=== PATIENT | female | born 1985 | race Hispanic/Latino ===

== ENCOUNTER 2017-12-19 21:22 | Emergency (ER) | payer MEDICAID, SELFPAY ==
[2017-12-20 00:45] LABS: Bilirubin Negative (Negative); Blood, Urine Negative (Negative); Clarity CLEAR (Clear); Glucose, Urine (Dipstick) Negative (Negative); Leukocyte Negative (Negative); Nitrite Negative (Negative); Protein, Urine (Dipstick) Negative (Neg-Trace); Specific Gravity, Urine 1.005 (1.002-1.036)
== END 2017-12-20 01:33 | disposition home or self-care (01) ==
LOC: ERS 21:22
DX: O9A.212 Injury, poisoning and certain other consequences of external causes complicating pregnancy, second trimester (principal); S30.1XXA Contusion of abdominal wall, initial encounter; Z3A.18 18 weeks gestation of pregnancy; W22.8XXA Striking against or struck by other objects, initial encounter
CPT/HCPCS: 81003; 87086; 99283

== ENCOUNTER 2018-03-21 23:14 | Day surgery (SDC) | payer OTHER ==
[2018-03-22 00:12] VITALS: BP 116/63; TEMP 98.3
--- NOTE | 2018-03-22 01:04 | PDOC.FPROB ---
FMR OB H&P: HPI - History of Present Illness Chief Complaint: Abdominal Pain History of Present Illness: Ms Cordon is a 32yo female @31.1wks by LMP c/w 16.2wk US presenting for sharp abdominal pain that started at 2300 after she felt baby move. Pain was severe initially but has decreased to 2/10. Denies contractions, vaginal bleeding, LOF. Primary Care Physician: Arash Washington MD FMR OB H&P: Current - Care : 2 Para: 1001 Gestational age: 31.1wks Due date: 05/23/2018 Dating Criteria: LMP c/w 16.2 US Total weight gain: 10lb Course/Complications: GDM controlled with Metformin and Diet - OB Labs Blood type: B RH: positive Antibody Screen: negative HIV: negative RPR: negative HepBsAg: negative Rubella: immune Quad screen: unknown (declined) Gonorrhea: unknown Chlamydia: unknown 1 hour gtt: 233 A1c: 5.8% GBS: unknown H&H: 11.5/32.5 Platelets: 160 - First Trimester Ultrasound First trimester: normal - Anatomy Survey Anatomy survey: no abnormalities visualized FMR OB H&P: History - Past Medical History PMH: None - OB History OB History: daughter age 9 born by - Social History Social History: Denies alcohol, tobacco or drug use - Family History Family History: FH + for DM FMR OB H&P: Medications - Current Home Medications: Medication Instructions Recorded Confirmed Type Vit,Calc78/Iron/Folic 1 tab PO QAM 03/22/18 03/22/18 History [Prenatabs FA Tablet] metFORMIN [Glucophage] 500 mg PO Q24HR 03/22/18 03/22/18 History Allergies/Adverse Reactions: Allergies Allergy/AdvReac Type Severity Reaction Status Date / Time No Known Allergies Allergy Unverified 03/22/18 00:13 FMR OB H&P: ROS - Review of Systems General: denies: fever/chills Eyes: denies: vision changes, double vision ENT: denies: nasal congestion, rhinorrhea Cardiovascular: denies: chest pain, edema Respiratory: denies: cough, congestion, shortness of breath Gastrointestinal: reports: abdominal pain. denies: nausea, vomiting Genitourinary (Female): denies: dysuria, vaginal discharge, vaginal pain, vaginal bleeding, contractions Musculoskeletal: denies: pain Neurologic: denies: seizures, headache Integumentary: denies: rash, lesions Breast: denies: skin changes Endocrine: reports: polyuria FMR OB H&P: Vital Signs - Maternal Vital signs: Vital Signs - First Documented Temp Pulse Resp BP Pulse Ox 98.3 F 81 20 116/63 98 03/21/18 23:58 03/21/18 23:58 03/21/18 23:58 03/21/18 23:58 03/21/18 23:58 - Heart Tones Baseline: 130 Variability: moderate Acceleration: present Deceleration: absent Category: category 1 New Era contractions every: none FMR OB H&P: Physical Exam - Physical Exam General: NAD, awake, alert and oriented HEENT: normocephalic and atraumatic Neck: supple, trachea midline Heart: RRR, no murmurs/rubs/gallops General: CTAB, no respiratory distress, no wheezing Abdomen: soft, gravid, non-tender Skin: capillary refill <2 seconds Psychiatric: intact recent and remote memory, good judgement and insight, normal mood and affect FMR OB H&P: A/P - Problem List (1) Status: Acute Qualifiers: Weeks of gestation: 31 weeks Qualified Code(s): Z3A.31 - 31 weeks gestation of Disposition: Ms Cordon is a 32yo female @31.1wks by LMP c/w 16.2wk US presenting with abdominal pain - US preformed with single fetus in transverse lie, anterior placenta not low lying. - TRIXIE 20cm - BPP 8/8 - FHTs reassuring - Pain has resolved Dispo: Pt to discharge home Discussion: Date/Time: 03/22/18100 This H&P was discussed with Dr. Roach who agrees with the above documentation and plan. Attending Addendum - Attending Addendum Date/Time: 03/22/182301 I personally evaluated the patient and discussed the management with Dr. Lozano and Dr. Jerez I agree with the History, Examination, Assessment and Plan documented above with any addition or exceptions noted below. 32 yo female at 31.1 wks here for evaluation of abdominal pain. Pain present for less than 1 hour. No contractions, LOF, VB, trauma, or discharge. +FM. FHT reactive. BPP 8/8. Nontender on exam. MSK pain related to gestational age and movement. Now resolved. Reassuring monitoring throughout her stay. Has scheduled followup with PCP next week. Precautions discussed. Patient reassured. Ok for d/c to home. Clara
== END 2018-03-22 01:48 | disposition home or self-care (01) ==
LOC: L&D/OP 23:14
PROVIDERS: ATTEND Student in an Organized Health Care Education/Training Program
DX: O99.89 Other specified diseases and conditions complicating pregnancy, childbirth and the puerperium (principal); R10.9 Unspecified abdominal pain; O24.415 Gestational diabetes mellitus in pregnancy, controlled by oral hypoglycemic drugs; Z3A.31 31 weeks gestation of pregnancy
CPT/HCPCS: 76815; 90471; 90686; 99282; G0008

== ENCOUNTER 2018-05-02 18:14 | Inpatient (IN) | payer OTHER ==
--- NOTE | 2018-05-02 19:38 | PDOC.FPROB ---
FMR OB H&P: HPI - History of Present Illness Chief Complaint: Sent over from clinic for BPP 4/8 with non-reactive NST Indentification: 32 year old at 37.0 wks History of Present Illness: 32 yo at 37.0w by LMP/16.2w sono her for evaluation after being found to have abnormal BPP/NST at clinic today. BPP 4/10 with non-reactive NST. No points were given for breathing and flexion/extension. Patient does have history of uncontrolled GDM on metformin 1000 mg BID. Her sugars over the last week are not at goal, but they have improved. Patient endorses movement. She denies N/V, vaginal bleeding, vaginal discharge, LoF. Patient has intermittent contractions. Primary Care Physician: MERCED Carrington/Padmini FMR OB H&P: Current - Care : 2 Para: 1001 Gestational age: 37.0 wks Due date: 05/23/2018 Dating Criteria: LMP/16.2 wk sono - OB Labs Blood type: B RH: positive Antibody Screen: negative HIV: negative RPR: negative HepBsAg: negative Rubella: immune 1 hour gtt: 233 A1c: 5.8% GBS: positive - Additional Ultrasound Additional: Ultrasound on 04/11/2018 showed EFW 2824g. Hadlock 92.2%. Polyhdramnios noted at that time with TRIXIE 26.99. FMR OB H&P: History - Past Medical History PMH: None - OB History OB History: AD GDM, uncontrolled Polyhydramnios on repeated sono's LGA infant Prior LGA infant requiring vacuum assisted delivery and episiotomy for delivery - SOCIAL MEDIA DEVELOPER History SOCIAL MEDIA DEVELOPER History: None FMR OB H&P: Medications - Current Home Medications: Medication Instructions Recorded Confirmed Type Vit,Calc78/Iron/Folic 1 tab PO QAM 03/22/18 05/02/18 History [Prenatabs FA Tablet] metFORMIN [Glucophage] 500 mg PO Q24HR 03/22/18 05/02/18 History Allergies/Adverse Reactions: Allergies Allergy/AdvReac Type Severity Reaction Status Date / Time No Known Allergies Allergy Verified 05/02/18 19:52 FMR OB H&P: ROS - Review of Systems General: denies: fever/chills Eyes: denies: vision changes, double vision ENT: denies: nasal congestion, rhinorrhea, sore throat Cardiovascular: denies: chest pain, palpitation Respiratory: denies: cough, congestion, shortness of breath Gastrointestinal: denies: abdominal pain, bloating, cramping, nausea, vomiting Genitourinary (Female): denies: incontinence, dysuria Musculoskeletal: denies: pain Neurologic: denies: numbness, syncope, seizures Integumentary: denies: rash, lesions Hematologic/Lymphatic: denies: prolonged or excessive bleeding Psychological: reports: anxiety (anxiety about current situation). denies: depression FMR OB H&P: Vital Signs - Heart Tones Variability: moderate Acceleration: present Deceleration: absent Category: category 1 FMR OB H&P: Physical Exam - Physical Exam General: NAD, awake, alert and oriented HEENT: MMM Neck: supple Heart: RRR General: no respiratory distress Abdomen: soft, gravid, non-tender Musculoskeletal: normal gait and station, pulses present, FROM in all four extremities Neurological: no tremor, no focal deficit Skin: no rash, capillary refill <2 seconds Lymphatic: no unusual bruising or bleeding Psychiatric: intact recent and remote memory, good judgement and insight, normal mood and affect - Pelvic Exam Vulva: normal hair distribution, no masses, no discharge, no blood SVE: Difficult exam; FT/thick/high; could not determine presentation Presentation: Vertex on bedside sono; could not confirm with cervical exam Estimated Weight: 8 lbs FMR OB H&P: A/P - Problem List (1) Term Current Visit: Yes Status: Acute Code(s): Z34.80 - ENCOUNTER FOR SUPRVSN OF NORMAL , UNSP TRIMESTER (2) GDM, class A2 Current Visit: Yes Status: Acute Code(s): O24.419 - GESTATIONAL DIABETES MELLITUS IN , UNSP CONTROL (3) LGA (large for gestational age) fetus Current Visit: Yes Status: Acute Code(s): PTG1959 - (4) Polyhydramnios affecting Current Visit: Yes Status: Acute Code(s): O40.9XX0 - POLYHYDRAMNIOS, UNSP TRIMESTER, NOT APPLICABLE OR UNSP (5) GBS (group B Streptococcus carrier), +RV culture, currently Current Visit: Yes Status: Acute Code(s): O99.820 - STREPTOCOCCUS B CARRIER STATE COMPLICATING Disposition: 32 year old at 37 wk by LMP/16.2 sk sono presents after being sent over from clinic due to BPP/NST of 09/13. Non-reassuring BPP/NST - BPP/NST 09/13; points not given for breathing and flexion/extension - Bedside sono and formal BPP 01/11 - NST now reactive - BG 95 - Presentation on sono over last few weeks has been transverse; however, sono on bedside showed vertex presentation; repeat sono for formal BPP showed transverse presentation with head to left (unstable lie) - BPP reassuring. Will plan to monitor for an additional 2-3 hours and send home. - Cervical exam: FT/thick/high. Could not confirm presentation on cervical exam. - Anterior, right placenta - TRIXIE 21.5 cm today on sono A2 GDM, Uncontrolled - On metformin - BG over last week has been better controlled, although not at goal - POC glucose 95 - Weekly BPP/NST's have been reassuring until today LGA infant - EFW 2824g with hadlock 92.2% on 04/11 Polyhydramnios - On 04/11 TRIXIE 26.99 cm - Today TRIXIE 21.5 cm GBS positive - Will need ppx antibiotics during delivery Term - 37 weeks - C/S scheduled for Tuesday in AM; however, patient may not need C/S if vertex presentation Discussion: Date/Time: 05/02/181936 This H&P was discussed with Dr. Leigh who agrees with the above documentation and plan. Signature: Li Carrington DO PGY-2 Attending Addendum - Attending Addendum Date/Time: 05/03/18 0020 I personally evaluated the patient and discussed the management with Dr. Carrington. I agree with and repeated the History, Examination, Assessment and Plan documented above with any addition or exceptions noted below. Pt on my BSUS was cephalic with BPP 01/11. A formal one was requested which revealed a BPP of 88, but now transverse with head to maternal left. During prolonged monitoring several late decelerations were noted. In light of her poorly controlled A2DM, variable but now transverse lie, that she is remote from delivery I discussed the r/b/a/i of a CD including pain, bleeding, infection, damage to bowel, bladder, ureter and need for transfusion, reoperation, and prolonged hospitalization and patient understands and desires to proceed. I have also discussed the case with Dr. Enriquez, who agrees. Will send labs and notify anesthesia.
[2018-05-02 19:52] VITALS: BMI 27.6
--- NOTE | 2018-05-02 22:31 | ULT ---
LIMITED OBSTETRICAL ULTRASOUND BIOPHYSICAL PROFILE 05/02/18 HISTORY: Evaluate presentation and location of placenta, evaluate biophysical profile. TECHNIQUE: Multiplanar navarro scale sonographic imaging of the gravid uterus obtained. FINDINGS: Cervical length is 5.3 cm. Placenta is located anteriorly with no evidence for previa ore abruption. The fetus demonstrates a transverse presentation with the head to the maternal left. A three vessel cord is noted. A four chamber heart view is unremarkable, with a heart rate of 1 44 beats per minute. A single intrauterine gestation is visualized. The amniotic fluid index is 21.7 cm. The [employer] reports a 2 out of 2 score for tone, breathing, movement and amniot ic fluid, consistent with a normal 8 out of 8 biophysical profile. anatomy was not fully assessed on this examination. biometry was not performed. IMPRESSION: Single intrauterine gestation demonstrating a transverse presentation with head to material left. Yasmine centa is located anteriorly and to the right with no evidence for previa or abruption. Amniotic fluid index is 21.7 cm and biophysical profile score is 8 out of 8. POS: [facility]
[2018-05-03] MEDS ORDERED: Morphine PF 1 MG/ML SYR ONE (00:31)
[2018-05-03] MEDS ORDERED: Ondansetron PF 4 MG/2 ML Vial ONE (00:32)
[2018-05-03] MEDS ORDERED: ePHEDrine/0.9% NaCl/PF SYRINGE 50 mg/10 ml ONE (00:32)
[2018-05-03] MEDS ORDERED: Oxytocin 10 UNITS/ML VIAL ONE ×2 (00:32→02:01)
[2018-05-03] MEDS ORDERED: Bicitra 30 ML UDCUP ONE (00:38)
[2018-05-03] MEDS ORDERED: CEFAZOLIN 2 GM/50 ML BAG ONE (00:38)
[2018-05-03] MEDS ORDERED: CEFAZOLIN/Water 2 GM/20 ML SYRINGE SLOW IVP SCH (01:00)
[2018-05-03 01:01] LABS: Hemoglobin 13.7 g/dL (12.0-16.0); Mean Corpuscular HGB CONC 34.9 g/dL (32.0-36.0); Mean Corpuscular Hemoglobin 30.1 pg (27.0-31.0); Mean Corpuscular Volume 86.3 fL (78.0-98.0); Mean Platelet Volume 9.4 fL (7.4-10.4); Platelet Count 173 thou/uL (130-400); RBC Distribution Width 13.6 % (11.5-14.5); Red Blood Cell (RBC) Count 4.54 mill/uL (4.20-5.40); White Blood Cell (WBC) Count 8.2 thou/uL (4.8-10.8)
[2018-05-03] MEDS ORDERED: Lidocaine 1% PF 5 ML VIAL ONE (01:24)
[2018-05-03] MEDS ORDERED: Bupivacaine 0.75% W/DEXTROSE 8.25% 2 ML AMP ONE (01:24)
[2018-05-03] MEDS ORDERED: CEFAZOLIN 2 GM/50 ML-DEXTROSE 2 GM in Premix Bag 1 BAG IVPB SCH (01:30)
[2018-05-03] MEDS ORDERED: Bicitra 30 ML UDCUP PO SCH (01:30)
[2018-05-03 01:38] LABS: Syphilis Antibody Nonreactive (Nonreactive); Syphilis Antibody Index 0.04 S/CO (<1.00 Non-Reactive)
[2018-05-03 01:39] LABS: HBSAg Index 0.22 S/CO (0-0.99); Hep B Surf Ag Non-Reactive S/CO (NonReactive)
[2018-05-03] MEDS ORDERED: Methylergonovine 0.2 MG/ML VIAL ONE (02:00)
[2018-05-03] MEDS ORDERED: Naloxone HCl 0.4 mg/ml Vial IVP PRN ×2 (02:34)
[2018-05-03] MEDS ORDERED: Hydrocerin (Eucerin) Cream 120 gm Jar TOP PRN (02:34)
[2018-05-03] MEDS ORDERED: Ondansetron PF 4 MG/2 ML Vial IVP PRN (02:34)
[2018-05-03] MEDS ORDERED: Promethazine HCl 25 MG/ML VIAL IM PRN (02:34)
[2018-05-03] MEDS ORDERED: Promethazine HCl 25 MG SUPP PR PRN (02:34)
[2018-05-03] MEDS ORDERED: Ketorolac Tromethamine 30 MG/ML VIAL IVP PRN (02:34)
[2018-05-03] MEDS ORDERED: Naloxone HCl 0.4 mg/ml Vial IV PRN (02:34)
[2018-05-03] MEDS ORDERED: diphenhydrAMINE 50 MG/ML VIAL IVP PRN (02:34)
[2018-05-03] MEDS ORDERED: Communication Order-Pharmacy FS SCH (02:45)
--- NOTE | 2018-05-03 03:05 | PDOC.OPDEL ---
OB Operative/Delivery Note Delivery Dr/Surgeon: Terrance Carrington Williamson Assist: Padmini Pre-Delivery Diagnosis: non-reassuring tracing, other Procedure/Post Delivery Dx: primary low transverse CS Weeks gestation: 37 (37.1 wks) Anesthesia: spinal - Findings A Sex: female - 1 min: 8 - 5 min: 8 - Additional Findings/Plan Placenta delivered: manual removal findings: low transverse hysterotomy without extension, normal uterus Compilations/Other Findings: Date of Procedure: 05/03/2018 Resident Surgeon: Frances Carrington Box Press Operator: Padmini Attending Surgeon: Lu Procedure: Primary low transverse caesarean section Preoperative Diagnosis: 1. Term intrauterine 2. Non-reassuring FHT's 3. Uncontrolled A2 GDM 4. LGA fetus 5. Polyhydramnios 6. GBS positive Postoperative Diagnosis: 1. Term intrauterine , delivered 2. pLTCS 3. same as above Anesthesia: spinal Indications: The patient is a 32 year old female at 37.1 weeks gestation who presented initially from clinic due to BPP/NST of 09/13. Repeat BPP was 10/. However, patient was observed for several hours and was noted to have several late decelerations. Due to patient's history of uncontrolled A2 GDM and other non-reassuring findings, a decision was made to proceed with delivery. C/S indicated due to unstable lie. Within a 30 minute period infant had flipped from vertex to transverse. Procedure in Detail: After risks, benefits, and alternatives were explained to the patient, she gave informed consent. Pre-operative antibiotics included Cefazolin 2 gram IV. The patient was taken to the operating room and spinal anesthesia was initiated. Bedside sono was used and confirmed vertex position just prior to procedure. She was placed in the supine position with a left tilt and prepped and draped in usual sterile fashion. A Pfannenstiel incision was made with a scalpel and carried down to the level of the fascia which was sharply nicked. The fascial cut was extended bilaterally with Wyatt sissors. The inferior and superior edges of the cut fascial edges were elevated with Mick clamps and the underlying rectus muscles were sharply and bluntly dissected free. The recti were divided digitally and retracted manually. The peritoneum was entered bluntly and retracted manually. Bladder blade was placed. Bladder flap was created with Metzenbaum scissors. A low transverse score was made with the scalpel and the uterus was entered in the midline with the scalpel. Clear fluid was seen. The hysterotomy was extended manually. The infant was noted to be vertex but presented with floating head. A vacuum assisted ceserean delivery was performed successfully with one attempt and no pop-offs. Mouth and nares were bulb suctioned. Cord clamped and cut and grossly normal female infant was handed to waiting nurse. Cord blood was obtained. Placenta was manually extracted, found to be intact with 3 vessel cord sent for pathology. The uterus was externalized and the endometrium was curetted with a dry lap. The bladder blade was replaced and the uterus was closed with a running locking #1 Chromic suture followed by a running non- locking #1 Chromic imbricating suture in horizontal fashion. A figure of eight was utilized at the left end of the incision using 3-0 vicryl to achieve better hemostasis. Following this hemostasis was noted. The uterus was internalized and the hysterotomy was again noted to be hemostatic. The fascia was closed with a running non-locking 0-PDS suture. The subcutaneous tissue was irrigated and there were no bleeders. The skin was approximated with 4-0 monofilament and dermabond. A dressing was placed. All counts were correct. The patient tolerated the procedure well and was taken to the recovery room in stable condition. QBL: 800 mL Complications: None Specimens: Cord blood sent to lab for blood type. Placenta sent for pathology review. Findings: Grossly normal emale infant with apgars of 8 and 8. Grossly normal placenta with 3 vessel cord discarded. Drains: Lala to gravity draining clear urine Post delivery plan: routine recovery <Li Carrington - Last Filed: 05/05/18 12:52> Attending Addendum - Attending Addendum Date/Time: 05/06/182200 I was present for the entire case. Also added diagnoses of unstable lie an bpp 09/13. <Luis F Leigh - Last Filed: 05/06/18 22:02>
[2018-05-03] MEDS ORDERED: Lanolin Ointment 7 GM TUBE TOP PRN (05:21)
[2018-05-03] MEDS ORDERED: Methylergonovine 0.2 MG/ML VIAL IM PRN (05:21)
[2018-05-03] MEDS ORDERED: Methylergonovine 0.2 MG TAB PO PRN (05:21)
[2018-05-03] MEDS ORDERED: Simethicone Chewable 80 MG TAB PO PRN (05:21)
[2018-05-03] MEDS ORDERED: HYDROcodone/Acetaminophen 5/325 mg Tablet PO PRN ×3 (05:21→14:45)
[2018-05-03] MEDS ORDERED: diphenhydrAMINE 25 MG CAP PO PRN (05:21)
[2018-05-03] MEDS ORDERED: Misoprostol 200 MCG TAB PR PRN (05:21)
[2018-05-03] MEDS ORDERED: Adacel (T-DAP) 0.5 ML VIAL IM ONE (05:21)
[2018-05-03] MEDS ORDERED: Acetaminophen 325 MG TAB PO PRN (05:21)
[2018-05-03] MEDS ORDERED: NS / Oxytocin 40 units/1000ml 1,000 ML IV SCH (06:00)
[2018-05-03] MEDS ORDERED: Ibuprofen 800 MG TAB PO SCH (06:00)
--- NOTE | 2018-05-03 07:01 | PDOC.PP ---
Post Progress Note Post Day #: 0 Subjective: 32 yo -> 2 delivered KVNG female via LTCS for non-reassuring heart tones at 37w1d at 0156 on 05/03/18. Patient states she feels well overall. She is having some "soreness" type pain. She is otherwise feeling well. She states that her legs still feel heavy from the anesthesia and she has not been up and walking around as of yet. She denies headache, vision changes, n/v/d, lightheadedness, or lower extremity swelling. No other complaints today. PO intake tolerated: yes Flatus: no Ambulation: no Weight Weight 70.76 kg - Physical Examination General: NAD Cardiovascular: no m/r/g, RRR Respiratory: clear to auscultation bilaterally, non-labored breathing Abdominal: + bowel sounds, appropriately TTP Extremities: negative homans (B) Skin: CS incision dry & intact Neurological: no gross focal deficits Psychiatric: A&Ox3 Result Diagrams: 05/03/18 00:15 Additional Labs: Post Labs Blood Type B POSITIVE 05/03/18 01:24 Hep Bs Antigen Non-Reactive S/CO (NonReactive) 05/03/18 00:15 (1) Status post delivery Code(s): Z98.891 - HISTORY OF UTERINE SCAR FROM PREVIOUS SURGERY Status: Acute (2) Term Code(s): Z34.80 - ENCOUNTER FOR SUPRVSN OF NORMAL , UNSP TRIMESTER Status: Acute (3) GDM, class A2 Code(s): O24.419 - GESTATIONAL DIABETES MELLITUS IN , UNSP CONTROL Status: Acute - Assessment/Plan 1. S/P - Delivery at 0156 on 05/03/18 - Continue routine post op care - Continue with pain control - VTE prophylaxis SCDs - Repeat H & H tomorrow morning. 2. Term , delivered - Patient desires to breast and bottle feed - KVNG female in NICU currently - Continue routine post delivery care 3. GDM, A2 - On metformin - Continue accuchecks - Consider discontinuing accuchecks and metformin during hospitalization. Disposition: Stable, Will recheck H & H tomorrow. Will continue supportive care.
[2018-05-03] MEDS: Prenatal Vitamin 1 TAB PO SCH (09:18)
[2018-05-03] MEDS: metFORMIN 500 MG TAB PO SCH ×2 (09:18→17:22)
[2018-05-03] MEDS: HYDROcodone/Acetaminophen 5/325 mg Tablet PO PRN (17:24)
[2018-05-03] MEDS: Ibuprofen 800 MG TAB PO SCH (21:21)
[2018-05-04] MEDS: Ibuprofen 800 MG TAB PO SCH ×3 (05:11→21:10)
[2018-05-04] MEDS: HYDROcodone/Acetaminophen 5/325 mg Tablet PO PRN (05:25)
[2018-05-04 06:27] LABS: Hemoglobin 11.3 g/dL (12.0-16.0); Mean Corpuscular HGB CONC 34.3 g/dL (32.0-36.0); Mean Corpuscular Hemoglobin 29.9 pg (27.0-31.0); Mean Corpuscular Volume 87.2 fL (78.0-98.0); Mean Platelet Volume 9.4 fL (7.4-10.4); Platelet Count 168 thou/uL (130-400); RBC Distribution Width 13.5 % (11.5-14.5); Red Blood Cell (RBC) Count 3.76 mill/uL (4.20-5.40); White Blood Cell (WBC) Count 9.7 thou/uL (4.8-10.8)
--- NOTE | 2018-05-04 07:29 | PDOC.PP ---
Post Progress Note Post Day #: 1 Subjective: 32 yo -> 2 delivered KVNG female via LTCS for non-reassuring heart tones at 37w1d at 0156 on 05/03/18. Patient states she feels well overall. She is having some "soreness" type pain, but less than yesterday. Patient states that she has been tolerating her food fine and has been up and walking around. She went to visit her daughter in the NICU yesterday and states she has a lot of hair. She denies headache, vision changes, n/v/d, lightheadedness, or lower extremity swelling. No other complaints today. PO intake tolerated: yes Flatus: yes Ambulation: yes Vital Signs (12 hours) Temp Pulse Resp BP Pulse Ox 05/04/18 05:15 97.6 F 72 18 90/55 L 05/04/18 00:00 97.7 F 76 18 93/53 L 05/03/18 22:00 18 05/03/18 20:00 98.5 F 80 20 91/50 L 96 Weight Weight 70.76 kg - Physical Examination General: NAD Cardiovascular: no m/r/g, RRR Respiratory: clear to auscultation bilaterally, non-labored breathing Abdominal: + bowel sounds, no distention, appropriately TTP Fundus firm & at: Umbilicus Extremities: negative homans (B) Skin: CS incision dry & intact, no rash Neurological: no gross focal deficits Psychiatric: A&Ox3, normal affect Result Diagrams: 05/04/18 05:50 Additional Labs: Post Labs Blood Type B POSITIVE 05/03/18 01:24 Hep Bs Antigen Non-Reactive S/CO (NonReactive) 05/03/18 00:15 (1) Status post delivery Code(s): Z98.891 - HISTORY OF UTERINE SCAR FROM PREVIOUS SURGERY Status: Acute (2) Term Code(s): Z34.80 - ENCOUNTER FOR SUPRVSN OF NORMAL , UNSP TRIMESTER Status: Acute (3) GDM, class A2 Code(s): O24.419 - GESTATIONAL DIABETES MELLITUS IN , UNSP CONTROL Status: Acute - Assessment/Plan 1. S/P - Delivery at 0156 on 05/03/18 - Continue routine post op care - Continue with pain control - VTE prophylaxis SCDs - Hgb 11.3 on 05/04/18 2. Term , delivered - Patient desires to breast and bottle feed - TAGA female in NICU currently - Continue routine post delivery care - Contraception plan for this patient will be completed at visits. Counseled on IUD, Nexplanon, or permanent sterilization procedures. 3. GDM, A2 - On metformin - Continue accuchecks - Fasting glucose 05/04/18 was 87 - Post-prandial glucose checks not at goal Disposition: Stable, Will continue supportive care. Patient would like to have herself and daughter follow up with myself in the clinic. <Arash Washington - Last Filed: 05/04/18 07:31> Vital Signs (12 hours) Temp Pulse Resp BP Pulse Ox 05/04/18 08:13 97.6 F 66 20 87/55 L 97 05/04/18 05:15 97.6 F 72 18 90/55 L 05/04/18 00:00 97.7 F 76 18 93/53 L Weight Weight 70.76 kg Result Diagrams: 05/04/18 05:50 Additional Labs: Post Labs Blood Type B POSITIVE 05/03/18 01:24 Hep Bs Antigen Non-Reactive S/CO (NonReactive) 05/03/18 00:15 <Codie Bergeron - Last Filed: 05/04/18 11:01> Weight Weight 70.76 kg Result Diagrams: 05/04/18 05:50 Additional Labs: Post Labs Blood Type B POSITIVE 05/03/18 01:24 Hep Bs Antigen Non-Reactive S/CO (NonReactive) 05/03/18 00:15 (1) Term Code(s): Z34.80 - ENCOUNTER FOR SUPRVSN OF NORMAL , UNSP TRIMESTER Status: Acute (2) GDM, class A2 Code(s): O24.419 - GESTATIONAL DIABETES MELLITUS IN , UNSP CONTROL Status: Acute (3) LGA (large for gestational age) fetus Code(s): [id number] - Status: Acute (4) Polyhydramnios affecting Code(s): O40.9XX0 - POLYHYDRAMNIOS, UNSP TRIMESTER, NOT APPLICABLE OR UNSP Status: Acute (5) GBS (group B Streptococcus carrier), +RV culture, currently Code(s): O99.820 - STREPTOCOCCUS B CARRIER STATE COMPLICATING Status : Acute - Assessment/Plan 05/04/2018 at 17:00 I saw and evaluated patient on 05/04/2018. Patient doing well. No significant overnight events. Delivered on 05/03/2018 via pLTCS for NRFHT's and unstable lie. Uncomplicated delivery. Infant did go to NICU due to oxygen requirement. Mom is recovering well. Hg stable. Routine PP care. Continue metformin and ACHS accuchecks. Patient will remain on metformin until 2 week PP visit, at which time blood sugar will be re-evaluated. Plan for d/c in next day or two. Li Carrington, PGY-2 <Li Carrington - Last Filed: 05/06/18 18:28> Attending Addendum - Attending Addendum Date/Time: 05/04/18 1101 I personally evaluated the patient and discussed the management with Dr. Washington I agree with the History, Examination, Assessment and Plan documented above with any addition or exceptions noted below- Patient without complaints. Tolertaing diet. Afebrile VSS. A/P: 1) POD#2 s/p 1* LCT C/S for nonreassuring FHTs/unstable lie- H/H stable; continue routine care. <Codie Bergeron - Last Filed: 05/04/18 11:01> - Attending Addendum Date/Time: 05/06/18 6653 I personally evaluated the patient and discussed the management with [] I agree with the History, Examination, Assessment and Plan documented above with any addition or exceptions noted below. <Li Carrington - Last Filed: 05/06/18 18:28>
[2018-05-04] MEDS: metFORMIN 500 MG TAB PO SCH ×2 (09:16→17:09)
[2018-05-04] MEDS: Prenatal Vitamin 1 TAB PO SCH (09:16)
--- NOTE | 2018-05-04 16:46 | ULT ---
LIMITED OBSTETRICAL ULTRASOUND BIOPHYSICAL PROFILE 05/02/18 HISTORY: Evaluate presentation and location of placenta, evaluate biophysical profile. TECHNIQUE: Multiplanar navarro scale sonographic imaging of the gravid uterus obtained. FINDINGS: Cervical length is 5.3 cm. Placenta is located anteriorly with no evidence for previa ore abruption. The fetus demonstrates a transverse presentation with the head to the maternal left. A three vessel cord is noted. A four chamber heart view is unremarkable, with a heart rate of 1 44 beats per minute. A single intrauterine gestation is visualized. The amniotic fluid index is 21.7 cm. The rug cleaning supervisor reports a 2 out of 2 score for tone, breathing, movement and amniot ic fluid, consistent with a normal 8 out of 8 biophysical profile. anatomy was not fully assessed on this examination. biometry was not performed. IMPRESSION: Single intrauterine gestation demonstrating a transverse presentation with head to material left. Yasmine centa is located anteriorly and to the right with no evidence for previa or abruption. Amniotic fluid index is 21.7 cm and biophysical profile score is 8 out of 8.
[2018-05-05] MEDS: Ibuprofen 800 MG TAB PO SCH ×3 (05:57→21:59)
[2018-05-05] MEDS: HYDROcodone/Acetaminophen 5/325 mg Tablet PO PRN (06:03)
--- NOTE | 2018-05-05 08:17 | PDOC.PP ---
Post Progress Note Post Day #: 2 Subjective: Minimal pain around the incision. Pumping every 3 hours but no milk production yet. States she would like to stay an extra night to be close to the baby. PO intake tolerated: yes Flatus: yes Ambulation: yes Vital Signs (12 hours) Temp Pulse Resp BP Pulse Ox 05/04/18 21:00 98.2 F 79 16 98/54 L 97 Weight Weight 70.76 kg - Physical Examination General: NAD Cardiovascular: no m/r/g, RRR Respiratory: clear to auscultation bilaterally, non-labored breathing Abdominal: + bowel sounds, lochia, no distention, appropriately TTP Fundus firm & at: 3 cm below umbilicus Extremities: negative homans (B) Skin: CS incision dry & intact, no rash Neurological: no gross focal deficits Psychiatric: A&Ox3, normal affect Result Diagrams: 05/04/18 05:50 Additional Labs: Post Labs Blood Type B POSITIVE 05/03/18 01:24 Hep Bs Antigen Non-Reactive S/CO (NonReactive) 05/03/18 00:15 (1) GDM, class A2 Code(s): O24.419 - GESTATIONAL DIABETES MELLITUS IN , UNSP CONTROL Status: Acute (2) Status post delivery Code(s): Z98.891 - HISTORY OF UTERINE SCAR FROM PREVIOUS SURGERY Status: Acute
[2018-05-05] MEDS: Prenatal Vitamin 1 TAB PO SCH (09:25)
[2018-05-05] MEDS: metFORMIN 500 MG TAB PO SCH ×2 (09:25→19:19)
--- NOTE | 2018-05-05 12:23 | PDOC.PP ---
Post Progress Note Post Day #: 2 Subjective: Patient doing well this AM. No significant overnight events. Patient tolerating PO and ambulating. Minimal amount of pain around incision site. PO intake tolerated: yes Flatus: yes Ambulation: yes Vital Signs (12 hours) Temp Pulse Resp BP Pulse Ox 05/05/18 08:21 98.2 F 66 20 92/56 L 95 Weight Weight 70.76 kg - Physical Examination General: NAD Cardiovascular: no m/r/g, RRR Respiratory: clear to auscultation bilaterally, non-labored breathing Abdominal: + bowel sounds, lochia (less than period), no distention, appropriately TTP Fundus firm & at: umbilicus Extremities: negative homans (B) Skin: CS incision dry & intact, no rash Neurological: no gross focal deficits Psychiatric: A&Ox3, normal affect Result Diagrams: 05/04/18 05:50 Additional Labs: Post Labs Blood Type B POSITIVE 05/03/18 01:24 Hep Bs Antigen Non-Reactive S/CO (NonReactive) 05/03/18 00:15 (1) Term Code(s): Z34.80 - ENCOUNTER FOR SUPRVSN OF NORMAL , UNSP TRIMESTER Status: Acute (2) GDM, class A2 Code(s): O24.419 - GESTATIONAL DIABETES MELLITUS IN , UNSP CONTROL Status: Acute (3) LGA (large for gestational age) fetus Code(s): TER8198 - Status: Acute (4) Polyhydramnios affecting Code(s): O40.9XX0 - POLYHYDRAMNIOS, UNSP TRIMESTER, NOT APPLICABLE OR UNSP Status: Acute (5) GBS (group B Streptococcus carrier), +RV culture, currently Code(s): O99.820 - STREPTOCOCCUS B CARRIER STATE COMPLICATING Status : Acute - Assessment/Plan 1. S/P - Post op day #2 - Delivery at 0156 on 05/03/18 - Continue routine post op care - Continue with pain control; pain well controlled - VTE prophylaxis SCDs - Hgb 11.3 on 05/04/18 2. Term , delivered - Patient desires to breast and bottle feed; infant currently in NICU receiving O2 and tube feeds - TAGA female in NICU currently - Continue routine post delivery care - Contraception plan for this patient will be completed at visits. Counseled on IUD, Nexplanon, or permanent sterilization procedures. Still unsure at this time. 3. GDM, A2 - On metformin, continue. D/c 1 week before assessing for DM type II PP. - Continue accuchecks - Fasting glucose wnl - Post-prandial glucose checks not at goal currently Disposition: Stable, Will continue supportive care. Patient would like to have herself and daughter follow up at [facility]. Plan to keep patient day with possible d /c tomorrow.
[2018-05-05] MEDS ORDERED: Ondansetron PF 4 MG/2 ML Vial ONE (15:56)
[2018-05-05] MEDS ORDERED: ePHEDrine/0.9% NaCl/PF SYRINGE 50 mg/10 ml ONE (15:56)
[2018-05-05 20:30] VITALS: BP 105/63; TEMP 97.9
[2018-05-06] MEDS ORDERED: Calcium Carbonate 500 MG ChewTAB PO PRN
[2018-05-06] MEDS: Ibuprofen 800 MG TAB PO SCH (06:07)
[2018-05-06] MEDS: HYDROcodone/Acetaminophen 5/325 mg Tablet PO PRN (06:09)
--- NOTE | 2018-05-06 06:29 | PDOC.PP ---
Post Progress Note Post Day #: 3 PO intake tolerated: yes Flatus: yes Ambulation: yes Vital Signs (12 hours) Temp Pulse Resp BP Pulse Ox 05/05/18 20:00 97.9 F 67 16 105/63 99 Weight Weight 70.76 kg - Physical Examination General: NAD Cardiovascular: no m/r/g, RRR Respiratory: clear to auscultation bilaterally, non-labored breathing Abdominal: + bowel sounds, lochia, no distention, appropriately TTP Extremities: negative homans (B) Skin: CS incision dry & intact, no rash Neurological: no gross focal deficits Psychiatric: A&Ox3, normal affect Result Diagrams: 05/04/18 05:50 Additional Labs: Post Labs Blood Type B POSITIVE 05/03/18 01:24 Hep Bs Antigen Non-Reactive S/CO (NonReactive) 05/03/18 00:15 (1) Term Code(s): Z34.80 - ENCOUNTER FOR SUPRVSN OF NORMAL , UNSP TRIMESTER Status: Acute (2) GDM, class A2 Code(s): O24.419 - GESTATIONAL DIABETES MELLITUS IN , UNSP CONTROL Status: Acute (3) LGA (large for gestational age) fetus Code(s): [id number] - Status: Acute (4) Polyhydramnios affecting Code(s): O40.9XX0 - POLYHYDRAMNIOS, UNSP TRIMESTER, NOT APPLICABLE OR UNSP Status: Acute (5) GBS (group B Streptococcus carrier), +RV culture, currently Code(s): O99.820 - STREPTOCOCCUS B CARRIER STATE COMPLICATING Status : Acute - Assessment/Plan 1. S/P - Post op day #3 - Delivery at 0156 on 05/03/18 - Continue routine post op care - Continue with pain control; pain well controlled - VTE prophylaxis SCDs and ambulation - Hgb 11.3 on 05/04/18 2. Term , delivered - Patient desires to breast and bottle feed; currently in NICU receiving O2 and tube feeds - TAGA female in NICU currently - Continue routine post delivery care - Contraception plan for this patient will be completed at visits. Counseled on IUD, Nexplanon, or permanent sterilization procedures. Still unsure at this time. 3. GDM, A2 - On metformin, continue. D/c 1 week before assessing for DM type II PP. - Continue accuchecks - Fasting glucose wnl - Post-prandial glucose checks not at goal currently Disposition: Stable, Will continue supportive care. Patient would like to have herself and daughter follow up at [facility]. Plan for d/c home today with follow up in 2 weeks at [facility]. <Li Carrington - Last Filed: 05/06/18 06:28> Weight Weight 70.76 kg Result Diagrams: 05/04/18 05:50 Additional Labs: Post Labs Blood Type B POSITIVE 05/03/18 01:24 Hep Bs Antigen Non-Reactive S/CO (NonReactive) 05/03/18 00:15 <Alycia Curry - Last Filed: 05/06/18 14:20> Attending Addendum - Attending Addendum Date/Time: 05/06/18 [id number] I personally evaluated the patient and discussed the management with Dr. Carrington I agree with the History, Examination, Assessment and Plan documented above with any addition or exceptions noted below. Stable POD #3 s/p repeat . +Flatus. Ambulating, eating/drinking without difficulty. Bleeding <menses Incision is clean/dry/intact. Pt is stable for d/c today <Alycia Curry - Last Filed: 05/06/18 14:20>
[2018-05-06] MEDS: metFORMIN 500 MG TAB PO SCH (09:25)
[2018-05-06] MEDS: Prenatal Vitamin 1 TAB PO SCH (09:25)
== END 2018-05-06 14:30 | disposition home or self-care (01) | DRG 788 ==
LOC: L&D/OP 18:14 → L&D 05-03 → 3SW 05-03 05:59
PROVIDERS: ADMIT Emergency Medicine; ATTEND Emergency Medicine
PROC: 10D00Z1 Extraction of Products of Conception, Low, Open Approach (ICD-10-PCS; principal; 2018-05-03)
DX: O76 Abnormality in fetal heart rate and rhythm complicating labor and delivery (principal); O32.0XX0 Maternal care for unstable lie, not applicable or unspecified; O36.63X0 Maternal care for excessive fetal growth, third trimester, not applicable or unspecified; O40.3XX0 Polyhydramnios, third trimester, not applicable or unspecified; O99.824 Streptococcus B carrier state complicating childbirth; O24.425 Gestational diabetes mellitus in childbirth, controlled by oral hypoglycemic drugs; Z3A.37 37 weeks gestation of pregnancy; Z23 Encounter for immunization; Z37.0 Single live birth
CPT/HCPCS: 36415; 36416; 51702; 76815; 76819; 85027; 86780; 86850; 86900; 86901; 87340; 88307; 90471; 90686; 90715; 99285; G0008; J2001; J2210; J2274; J2405; J2590; J3490

== ENCOUNTER 2018-08-06 20:24 | Emergency (ER) | payer OTHER, SELFPAY ==
--- NOTE | 2018-08-06 21:02 | RAD ---
CHEST TWO VIEWS: HISTORY: Chest wall pain. TECHNIQUE: PA and lateral views of the chest are obtained. FINDINGS: There is loss of the left lung hemidiaphragm interface. This may represent an area of left lower lob e atelectasis and pneumonia. There is suboptimal inspiratory effort. The right lung is well aerated . IMPRESSION: Area of opacity in the left lower lobe, concerning for an area of pneumonia. POS: [facility]
[2018-08-06] MEDS ORDERED: Ibuprofen 200 MG TAB ONE (21:42)
== END 2018-08-06 21:55 | disposition home or self-care (01) ==
LOC: ERS 20:24
DX: J18.1 Lobar pneumonia, unspecified organism (principal)
CPT/HCPCS: 71046

== ENCOUNTER 2020-05-01 14:16 | Emergency (ER) | payer SELFPAY ==
[2020-05-01] MEDS ORDERED: Fentanyl 100 MCG/2 ML VIAL ONE (15:05)
[2020-05-01 15:20] LABS: Pregnancy Test - Urine (BHCG) Negative (Negative); Pregu Control Background? CLEAR/WHITE (CLR/WHITE); Pregu Control Bar Appear? YES (CONTROL BAR); Specific Gravity 1.038 (1.002-1.036)
--- NOTE | 2020-05-01 15:46 | RAD ---
EXAM: 3 views of the left wrist HISTORY: Wrist pain after fall COMPARISON: None FINDINGS: 3 views of the left wrist shows no evidence of acute fracture or dislocation. No soft tissu e swelling is seen. No degenerative changes are present. IMPRESSION: No evidence of acute osseous abnormality.
--- NOTE | 2020-05-01 15:47 | RAD ---
EXAM: 4 views of the left elbow HISTORY: Elbow pain after fall COMPARISON: None FINDINGS: No elbow effusion is seen. There is no evidence of acute fracture or dislocation. No signi ficant degenerative changes are seen. No soft tissue swelling is present. IMPRESSION: No evidence of acute osseous abnormality.
--- NOTE | 2020-05-01 15:47 | RAD ---
EXAM: 3 views of the left shoulder HISTORY: Shoulder pain after fall COMPARISON: None FINDINGS: There is no evidence of acute fracture or dislocation. No degenerative changes are present. No soft tissue swelling is seen. The visualized thorax is unremarkable. IMPRESSION: No evidence of acute osseous abnormality.
[2020-05-01] MEDS ORDERED: Ketorolac Tromethamine 30 MG/ML VIAL ONE (16:22)
== END 2020-05-01 16:44 | disposition home or self-care (01) ==
LOC: ERS 14:16
DX: M25.512 Pain in left shoulder (principal); M25.532 Pain in left wrist
CPT/HCPCS: 81025; 96372; J1885; J3010